=== PATIENT | female | born 1940 | race Caucasian/White ===

== ENCOUNTER 2016-09-01 00:19 | Inpatient (IN) | payer MEDICARE ==
[2016-09-01] VITALS (10 sets, daily range): BP systolic 124–173; BP diastolic 49–72; PULSE 45–55; RESP 14–16; O2SAT 92–98
[~2016-09-01] VITALS: Ht 170.2 cm; Wt 71.7 kg
[~2016-09-01 00:19] MED LIST: ALBU18HF INH; ALEN70TA2 PO; ASPI-973 PO; ATOR10TA66 PO; CITA20TA11 PO; DONE5TAB30 PO; LEVO50TA6 PO; MELO-259 PO; METO25TA6 PO; NITR0.4T SL; OMEP20CA11 PO
[2016-09-01 13:13] LABS: BASOPHILS % (AUTO) 0.6 % (0-3); MONOCYTES % (AUTO) 7.2 % (4-12); Mean Corpuscular Hemoglobin 27.4 pg (27.0-35.0); Mean Corpuscular Volume 85.2 fL (81-100); NEUTROPHILS % (AUTO) 59.9 % (40-74); Platelet Count 204 bil/L (150-400)
[2016-09-01] MEDS ORDERED: Heparin 1,000 Units/500 mL NS Premix IV ONE (15:49)
[2016-09-01] MEDS ORDERED: Heparin 1,000 Unit/mL 10 mL Inj ONE (15:49)
[2016-09-01] MEDS ORDERED: Heparin 10,000 Unit/1,000 mL NS Premix IV ONE (15:50)
[2016-09-01] MEDS ORDERED: fentaNYL-PF 50 mCg/mL 2 mL Inj ONE (16:33)
[2016-09-01] MEDS ORDERED: 0.9% Sodium Chloride 250 ML IV PRN (17:09)
[2016-09-01] MEDS ORDERED: 0.9% Sodium Chloride 1,000 ML IV PRN (17:09)
[2016-09-01] MEDS ORDERED: HYDROcodone-APAP 5-325 mg Tablet PO PRN (17:10)
[2016-09-01] MEDS ORDERED: Atropine 1 mg/10 mL (Code) Syringe IVPUSH PRN (17:10)
[2016-09-01] MEDS ORDERED: Ondansetron 2 mg/mL 2 mL Inj IVPUSH PRN (17:10)
[2016-09-02] VITALS (17 sets, daily range): BP systolic 105–166; BP diastolic 49–76; PULSE 42–73; RESP 11–18; O2SAT 91–98
[2016-09-02] MEDS: Sodium Chloride LOK Flush 10 mL Syringe IVFLUSH SCH ×3 (01:01→16:32)
[2016-09-02] MEDS ORDERED: 0.9% Sodium Chloride 1,000 ML IV ONE (06:00)
[2016-09-02] MEDS ORDERED: diphenhydrAMINE 25 mg Capsule PO ONE (06:00)
[2016-09-02] MEDS ORDERED: 0.9% Sodium Chloride 1,000 ML ONE (07:46)
[2016-09-02] MEDS ORDERED: Heparin 1,000 Units/500 mL NS Premix IV ONE (07:46)
[2016-09-02] MEDS ORDERED: Nitroglycerin 50,000 mcg/250 mL D5W Premix IV ONE (07:46)
[2016-09-02] MEDS ORDERED: Heparin 10,000 Unit/1,000 mL NS Premix IV ONE (07:46)
[2016-09-02] MEDS ORDERED: Heparin 1,000 Unit/mL 10 mL Inj ONE (08:02)
[2016-09-02] MEDS ORDERED: fentaNYL-PF 50 mCg/mL 2 mL Inj ONE (08:03)
--- NOTE | 2016-09-02 08:41 | DI95 ---
[address] [address] INTERVENTIONAL CARDIAC CATHETERIZATION PATIENT: KEVIN NICHOLSON : 1940 MR#: [id number] ADMIT: 09/01/2016 JOB ID: [id number] PROCEDURE: Percutaneous intervention on the proximal circumflex. INDICATION: Recurrent chest discomfort. PROCEDURAL DETAILS: The reader is referred to the procedure log for complete details. Briefly, this was done via left femoral approach using a 6-Luxembourgish Voda guide. Next, a Runthrough wire was used to cross this lesion. It was pre-dilated with a 2.0 balloon and then stented with a 3.0 x 12 mm Xience drug-coated stent delivered at 16 atmospheres with excellent angiographic results. The patient is advised to stay on dual antiplatelet therapy for at least six months post procedure. Further follow up with Dr. Braxton.
[2016-09-02] MEDS ORDERED: CLOP75TA3 PO (09:53)
--- NOTE | 2016-09-02 10:05 | PCM.CVCATH ---
Cardiac Cath Report Date of Service Sep 01, 2016 Primary Indication Exertional and now recently resting angina. Procedure 1. Left heart catheterization 2. Selective coronary angiography 3. Right femoral angiogram Vascular Access Right common femoral artery Procedure Details The patient was brought into the catheterization laboratory. The patient was nothing by mouth since midnight. The patient was prepped and sterilized in the appropriate fashion. Local anesthetic was given to the right groin region with lidocaine 1%. There is apparent and significant scar tissue involving both groins. She has denied any prior history of femoral bypass surgery. She states that scars are from a "tummy tuck ". Ultrasound was used for guidance and a percutaneous stick to the right groin region with an 18-gauge Seldinger needle was attempted. A 6 Moldovan sheath was inserted into the right femoral artery. A 6 Moldovan FL 4 diagnostic catheter was advanced and engaged into the left main. The left coronary angiography was performed in multiple views. The catheter was exchanged over the wire for a 6 Moldovan FR4 diagnostic catheter. The catheter was engaged in the right coronary ostium and the right coronary angiography was performed in multiple views. The catheter was removed over the wire and exchanged for 6 Moldovan angle pigtail catheter. LV hemodynamics were recorded. LV pullback was performed. All catheters were removed. The right femoral angiogram was performed to evaluate for closure device. This take was too high to consider closure device or to proceed with PCI with IV heparin. Hemostasis was obtained with manual compression. The patient was transferred back to special observation unit for post procedural monitoring. There were no immediate complications. Patient is planning to have her PCI the following day. Total fluoroscopy time: 2.1 minutes Total fluoroscopy dosage: 246 mGy Estimated blood loss: 10 mL Findings 1. Hemodynamics: The left ventricular systolic pressure was estimated at 187 mmHg and the left ventricular end-diastolic pressure was estimated at 19 mmHg. There is no significant gradient during pullback. Aortic systemic pressure was 179/66 mmHg. 2. Selective coronary angiography: A. Left main: There artery has no evidence of significant disease. It bifurcates into the left anterior descending and left circumflex arteries. B. Left anterior descending artery: There is at most mild diffuse disease in the proximal portion. It gives a large diagonal artery without any significant disease as well. The mid and distal portion of the LAD is widely patent. C. Left circumflex artery: This is a dominant vessel. There is a 80% proximal stenosis. In the same area there is a severe small marginal artery has a 90% ostial stenosis. Otherwise distally there is no evidence of significant disease. The posterior descending artery has no evidence of significant disease. D. Right coronary artery: This is a nondominant artery without any significant disease. 3. Right femoral angiogram: There is no evidence of significant disease. Unfortunately the femoral stick was high, hence PCI has been deferred for tomorrow morning. Summary 1. Significant stenosis involving the proximal portion of the dominant left circumflex artery. 2. [id number] disease in the proximal portion of the LAD but otherwise no evidence of critical stenosis. 3. RCA is a nondominant vessel. 4. Significant arterial hypertension with mildly increased left ventricular filling pressures. Recommendations Because of the high stick, the patient will be deferred for PCI. She will come back tomorrow morning to the catheterization laboratory and Dr. Tyrell Mariee will perform PCI of the proximal left circumflex artery. Dharmesh Braxton MD Sep 02, 2016 10:05
[2016-09-02] MEDS ORDERED: Polyethylene Glycol (PEG) 17 Gm Powder PO PRN (18:35)
[2016-09-02] MEDS ORDERED: Alum-Mag Hydrox-Simeth 30 mL Suspension PO PRN (18:35)
[2016-09-02] MEDS ORDERED: Ondansetron 2 mg/mL 2 mL Inj IVPUSH PRN (18:35)
--- NOTE | 2016-09-02 19:00 | PCM.HPMED ---
Subjective Date of Service Sep 02, 2016 Primary Provider: Admitting Physician: Primary Care Physician: George Zurita MD Attending Physician: Dharmesh Braxton MD Chief Complaint: Hospitalist consultation for altered mentation status post PCI History of Present Illness: Celia Betancourt is a 76-year-old woman with coronary artery disease who presented yesterday for exertional and resting angina and underwent left heart catheterization and subsequent stenting today. Per report the patient's daughter is quite concerned that she has become more altered and is unable to take care of herself. Patient currently is quite agitated and unable to give history. She states that she is not sure which being In "long term" and would like to go home. She is quite afraid of the hospital because she feels safe at home she does not like being in unfamiliar territory. Patient is aware to some extent that she is afraid but is uncertain of what that is what the cause of her outbursts are. She does state that she feels that she is losing her mind. She states that she does not remember coming into the hospital or why she came to the hospital. Short of feeling anxious and afraid of being here she has no complaints at this time. Per report, patient was started on a beta luis and since that time she became quite achieved and had difficulty ambulating. This beta luis stopped but she still remains quite bradycardic. Review of Systems: A comprehensive review of systems could not be performed as the patient was very fixated on trying to leave and did not want to comply with thorough history. Allergies Coded Allergies: No Known Allergies (Unverified , 09/01/16) Home Medications Unknown. Patient states that she is on many medications but does not know what they are. PMH Coronary artery disease Dementia Surgical History PCI with stenting. Family History Unable to obtain this time, patient is uncertain. Social History Hx Alcohol Use: No Hx Substance Use: No Hx Tobacco Use: Yes (Quit 50 years ago) Exam Vital Signs Vital Sign - Last Date Time Temp Pulse Resp B/P Pulse Ox O2 Delivery O2 Flow Rate FiO2 09/02/16 15:59 36.6 73 18 105/57 95 Room Air 09/02/16 11:27 2.00 Exam General: Patient is agitated and asking to leave., well-developed, well- nourished, HEENT: Normocephalic, atraumatic. External ears without defect. Pupils equal, round, and reactive to light and accommodation. Anicteric sclerae, moist conjunctivae, and no lid lag. Oropharynx free of erythema and cobble stoning with moist mucosa. Neck: Supple with full range of motion. No jugular venous distension. Cardiovascular: Unable to evaluate as patient was not compliant with exam. Pulmonary: Normal respiratory effort with no use of accessory muscles. Unable to auscultate Abdomen: Obese, non-distended. Extremities: No clubbing, cyanosis, edema. Skin: Normal temperature, turgor, and texture. Neurological: Cranial nerves grossly intact. Normal muscle strength, tone, and bulk. Reflexes, coordination, and sensory function within normal limits. No known gait impairment. Psychiatric: Agitated. Anxious. Oriented to self only. Lab and Diagnostics Result Diagram: 09/01/16 1300 09/01/16 1300 Assessment & Plan Celia Betancourt is a 76-year-old woman with coronary artery disease who presented yesterday for exertional and resting angina and underwent left heart catheterization and subsequent stenting today. Per report the patient's daughter is quite concerned that she has become more altered and is unable to take care of herself. Bradycardia secondary to beta luis toxicity, present on admission, active -Continue telemetry monitoring -Stop beta luis Hospital acquired delirium on baseline demential, present on admission, active -Likely due to new environment -Patient will require a sitter -Seroquel 25 mg now Coronary artery disease status post Xience drug-coated stent, present on admission, active -Continue dual antiplatelet therapy. Patient is admitted under observation status with expected length of stay less than 2 midnights due to severity of presenting symptoms, risk of adverse event, and complexity of treatment plan. Attending Statement The patient was seen and examined together with Dr. Rios on 09/02/2016 and I agree with the history, exam and plan as outlined in the note above. . copies to: George Zurita MD, Viktoriya DO Sep 02, 2016 18:33 Wild Duckworth MD Sep 04, 2016 07:31
[2016-09-02] MEDS ORDERED: Albuterol 2.5 mg/3 mL Inhalation Solution NEB PRN (21:07)
[2016-09-03] MEDS: Heparin 5,000 Unit/mL Inj SUBQ SCH ×3 (00:30→16:30)
[2016-09-03] MEDS: Sodium Chloride LOK Flush 10 mL Syringe IVFLUSH SCH ×3 (01:25→16:30)
[2016-09-03 02:27] VITALS: BP 173/73; PULSE 56; RESP 16; O2SAT 94
[2016-09-03 06:47] VITALS: BP 150/63; PULSE 58; RESP 16; O2SAT 95
[2016-09-03 10:59] VITALS: PULSE 49
[2016-09-03 13:04] VITALS: BP 148/66; PULSE 54; RESP 20; O2SAT 94
--- NOTE | 2016-09-03 15:21 | PCM.CHPCAR ---
Consult Subjective Date of service Sep 03, 2016 Date of admit Sep 01, 2016 at 19:56 Provider Requesting Consult Primary Care Physician Primary Care Physician: George Zurita MD Chief Complaint Dyspnea on exertion, abnormal stress test, confusion History of Present Illness 76-year-old woman history of hyperlipidemia and memory impairment admitted to [facility] as bedded outpatient for coronary angiography to explore exertional angina, exertional dyspnea, and abnormal stress test. She had coronary angiography done on 09/01/2016 and tolerated the procedure well. Given angiography showed significant stenosis of the proximal dominant left circumflex artery, she underwent drug-eluting stent placement with Dr. Mariee the next day. She tolerated the procedure well as well. However, she became more and more confused post procedure and became agitated. She was also noted to have significant sinus bradycardia with heart rate in the 30s. Per daughter , patient has chronic memory impairment and perhaps mild undiagnosed dementia but metoprolol made the patient's memory impairment worse. Metoprolol was stopped and patient's heart rate improved from 30s to 50s over the last 24 hours. Patient was confused and confrontational today morning as well but is back to her baseline after having her lunch today. Denies chest pain, dyspnea, lightheadedness, or syncope. She is able to walk around the hallway without any symptoms, which was not the case prior to stent placement. Review of Systems Review of Systems Per history of present illness and otherwise unremarkable PMH Past Medical History # HFrEF from nonischemic cardiomyopathy with AICD placement in 2003 and gen change 2009 # Pericardial cyst # Lupus anticoagulant # Pancreatic mass # Hyperlipidemia # Sleep apnea # Former cigarette smoker Bedside Blood Glucose: 84 Scheduled Alendronate Sodium (Fosamax) 70 Mg Tablet 70 MG PO WEEKLY (Reported) Aspirin (Aspirin) 81 Mg Tablet 81 MG PO DAILY (Reported) Atorvastatin Calcium (Atorvastatin Calcium) 10 Mg Tablet 10 MG PO DAILY ( Reported) Citalopram (Citalopram) 20 Mg Tablet 20 MG PO DAILY (Reported) Clopidogrel Bisulfate (Plavix) 75 Mg Tablet 75 MG PO DAILY (Reported) Donepezil (Donepezil) 5 Mg Tablet 5 MG PO HS (Reported) Levothyroxine (Levothyroxine) 50 Mcg Tablet 50 MCG PO DAILY (Reported) Meloxicam (Meloxicam) 7.5 Mg Tablet 7.5 MG PO DAILY (Reported) Metoprolol Tartrate (Metoprolol Tartrate) 25 Mg Tablet 12.5 MG PO BID (Reported ) Omeprazole (Omeprazole) 20 Mg Capsule.dr 20 MG PO DAILY (Reported) Scheduled PRN Albuterol Sulfate (Ventolin HFA Inhaler) 200 Puff/18 Gm Inhaler 1 PUFF INH Q4 PRN PRN For Wheezing (Reported) Nitroglycerin SL (Nitrostat) 0.4 Mg Tab.subl 0.4 MG SL Q5MIN PRN PRN For Chest Pain (Reported) Current Inpatient Medications Current Medications Sodium Chloride 1,000 ml @ 100 mls/hr Q10H PRN IV; Start 09/01/16 at 17:09 Sodium Chloride 250 ml @ 25 mls/min Q10M PRN IV; Start 09/01/16 at 17:09 Lidocaine HCl 10 ml ONCE PRN INJ; Start 09/01/16 at 17:10 Acetaminophen 975 mg Q6H PRN PO; Start 09/01/16 at 17:10 Acetaminophen/ Hydrocodone Bitart One tablet for Mild ... Q4H PRN PO Last administered on 09/01/16 22:48; Admin Dose 1 TABLET; Start 09/01/16 at 17:10 Ondansetron HCl Start with 4 MG, if ... Q4H PRN IVPUSH; Start 09/01/16 at 17:10 Morphine Sulfate Start at 1 mg, if not effect... Q5MIN PRN IVPUSH; Start at 17:10 Nitroglycerin 0.4 mg Q5MIN PRN SL; Start 09/01/16 at 17:10 Atropine Sulfate 1 mg ONCE PRN IVPUSH; Start 09/01/16 at 17:10 Nitroglycerin 0.4 mg PRN PRN SL; Start 09/02/16 at 06:00; Stop 09/02/16 at 06: 00; Status DC Sodium Chloride 10 ml VINNIE IVFLUSH Last administered on 09/03/16 13:10; Admin Dose 10 ML; Start 09/02/16 at 00:30 Albuterol 2.5 mg Q4H PRN NEB; Start 09/02/16 at 21:07 Atorvastatin Calcium 20 mg DAILY PO Last administered on 09/03/16 13:09; Admin Dose 20 MG; Start 09/01/16 at 17:20 Citalopram Hydrobromide 20 mg DAILY PO Last administered on 09/03/16 13:14; Admin Dose 20 MG; Start 09/02/16 at 08:30 Donepezil HCl 5 mg HS PO Last administered on 09/01/16 22:51; Admin Dose 5 MG; Start 09/01/16 at 21:00 Levothyroxine Sodium 50 mcg DAILYAC PO Last administered on 09/03/16 13:09; Admin Dose 50 MCG; Start 09/02/16 at 07:30 Metoprolol Tartrate 12.5 mg BID PO Last administered on 09/02/16 07:46; Admin Dose 12.5 MG; Start 09/01/16 at 20:30; Stop 09/02/16 at 15:43; Status DC Famotidine 20 mg BID PO Last administered on 09/03/16 13:09; Admin Dose 20 MG; Start 09/01/16 at 20:30 Clopidogrel Bisulfate 75 mg DAILY PO Last administered on 09/03/16 13:10; Admin Dose 75 MG; Start 09/03/16 at 08:30 Aspirin 81 mg DAILY PO Last administered on 09/03/16 13:09; Admin Dose 81 MG; Start 09/03/16 at 08:30 Quetiapine Fumarate 25 mg HS PO; Start 09/02/16 at 21:00; Stop 09/02/16 at 21:00 ; Status DC Heparin Sodium (Porcine) 5,000 unit Q8 SUBQ Last administered on 09/03/16 13:10 ; Admin Dose 5,000 UNIT; Start 09/03/16 at 00:30 Al Hydrox/Mg Hydrox/Simethicone 30 ml Q6H PRN PO; Start 09/02/16 at 18:35 Ondansetron HCl 4 to 8 mg Q4H PRN IVPUSH; Start 09/02/16 at 18:35 Senna 17.2 mg BID PRN PO; Start 09/02/16 at 18:35 Polyethylene Glycol 17 gm DAILY PRN PO; Start 09/02/16 at 18:35 Allergies: Coded Allergies: No Known Allergies (Unverified , 09/01/16) Family History Family History Daughter has diabetes Social History Hx Alcohol Use: NoHx Substance Use: NoHx Tobacco Use: Yes (Quit 50 years ago) Exam Vital Signs Vital Sign - Last Date Time Temp Pulse Resp B/P Pulse Ox O2 Delivery O2 Flow Rate FiO2 09/03/16 13:04 37.2 54 20 148/66 94 Room Air 09/02/16 11:27 2.00 Intake and Output 09/02/16 09/02/16 09/03/16 Cumulative From/Thru 15:00 23:00 07:00 09/01/16 13:15 - 09/03/16 06:47 Intake Total 300 ml 420 ml 100 ml 820 ml Output Total 650 ml 250 ml 900 ml Balance -350 ml 420 ml -150 ml -80 ml Intake Oral 300 ml 420 ml 100 ml 820 ml Output Urine Total 650 ml 250 ml 900 ml # Voids 1 1 2 # Bowel Movements 0 0 Objective General appearance: No apparent distress, well-nourished, pleasant, cooperative HEET: Normocephalic atraumatic, no scleral icterus, tongue midline, mucous membranes moist Neck: supple Cardiovascular: regular but robert, normal S1 and normal S2, no murmurs/rubs/ gallops, PMI nondisplaced, no JVD, no peripheral edema Respiratory: Good aeration, CTAB Abdomen: Soft, nontender, nondistended, + bowel sounds Groin: both groins clean with minimal ecchymosis and without pain Neuro: Alert, no facial droop, tongue midline, no gross motor deficits Psych: appropriate affect Skin: no rashes on face, neck, and lower extremities Lab and Diagnostics Result Diagram: 09/01/16 1300 09/03/16 0852 X-Rays, CTs and MRIs Cath 09/01/2016: Obstructive proximal disease in the dominant left circumflex artery, non-obstructive LAD disease. Assessment & Plan Assessment 76-year-old woman history of hyperlipidemia and memory impairment admitted to [facility] as bedded outpatient for coronary angiography to explore exertional angina, exertional dyspnea, and abnormal stress test: # CAD s/p BALBIR to proximal LCx 09/02/2016. Patient has done well since her stent placement and denies any angina or anginal equivalent symptoms. Her angiography access sites look good. I spent significant time educating the patient about her condition and answered her questions. Recommendations as below: - Continue aspirin 81 mg daily - Continue clopidogrel 75 mg daily for 6 months minimum - Continue atorvastatin 20 mg daily - Agree with stopping metoprolol and staying away from beta blockers and other AV suhail blocking agents given significant bradycardia with even low doses of metoprolol - His blood pressure greater than 140/90 consistently, consider starting the patient on lisinopril 10 mg daily and uptitrate to get blood pressure to goal. # Altered mental status in the setting of underlying dementia: Patient has had altered mental status due to being in the hospital and environmental changes. She feels better today and daughter agrees that patient is baseline. We will defer management to primary team. Cardiology will sign off at this time. Aaron Lau MD Sep 03, 2016 15:21
[2016-09-03] MEDS ORDERED: CLOP75TA3 PO (15:45)
[2016-09-03 15:49] VITALS: BP 149/63; PULSE 52; RESP 20; O2SAT 95
--- NOTE | 2016-09-03 15:52 | PCM.DIMED ---
José Miguel Doss DO 09/03/16 1552: Discharge Instructions Date of Service Sep 03, 2016 Dates of Hospitalization Sep 01, 2016 at 19:56 Discharge Diagnosis Discharge Diagnosis Bradycardia secondary to beta luis toxicity Hospital acquired delirium on baseline dementia Coronary artery disease status post Xience drug-coated stent Medication Instructions Additional med instructions Stop taking your Metoprolol. Diet Discharge Diet: Heart Healthy Activity Discharge Activity: Home Health Phyical Therapy Call your provider Call your provider for: Shortness of breath, Bleeding, Chest pain Patient Instructions Patient Instructions You need to take your Plavix and Aspirin daily - do not miss a dose to ensure your stent stays open. Stop taking your beta-luis (Metoprolol). You can go over more medication options at your follow up with Dr. Zurita to ensure you are on the right medication. At your appointment with Dr. Zurita, let him know I recommended home health PT for 3x weekly for 3-4 weeks. Follow-up Provider: George Zurita MD Follow-up with PCP in: 1 week (HR eval post hospitalization f/u) Wild Duckworth MD 09/04/16 0732: Discharge Instructions Attending's Statement The patient was seen and examined together with Dr. Doss on 09/03/2016 and I agree with the history, exam and plan as outlined in the note above. . José Miguel Doss DO Sep 03, 2016 15:52 Wild Duckworth MD Sep 04, 2016 07:32
--- NOTE | 2016-09-03 16:01 | PCM.DC.MED ---
Discharge Summary Date of Service Sep 03, 2016 Dates of Hospitalization Date of Hospital Admission Sep 01, 2016 at 19:56 Date of Discharge: Sep 03, 2016 Providers: Admitting Physician: Dharmesh Braxton MD Primary Care Physician: George Zurita MD Attending Physician: Dharmesh Braxton MD Diagnosis at Time of Discharge Diagnosis at Time of Discharge Bradycardia secondary to beta luis toxicity Hospital acquired delirium on baseline dementia Coronary artery disease status post Xience drug-coated stent Consultations Dr. Lau, Cardiology Procedures Invasive Procedures Cardiac Catheterization with PCI 09/02 Summary 1. Significant stenosis involving the proximal portion of the dominant left circumflex artery. 2. Camx-dj-rovddiet disease in the proximal portion of the LAD but otherwise no evidence of critical stenosis. 3. RCA is a nondominant vessel. 4. Significant arterial hypertension with mildly increased left ventricular filling pressures. Recommendations Because of the high stick, the patient will be deferred for PCI. She will come back tomorrow morning to the catheterization laboratory and Dr. Tyrell Mariee will perform PCI of the proximal left circumflex artery. The patient is advised to stay on dual antiplatelet therapy for at least six months post procedure. Further follow up with Dr. Braxton. Brief History Mrs. Jamison is a 76-year-old woman with a history of hyperlipidemia and memory impairment admitted to [facility] for coronary angiography to explore exertional angina, exertional dyspnea, and abnormal stress test. She had a coronary angiography done on 09/01/2016 which showed significant stenosis of the proximal dominant left circumflex artery as above. She underwent drug-eluting stent placement with Dr. Mariee the next day. She was also noted to have significant sinus bradycardia with heart rate in the 30s. Her metoprolol was stopped and her HR increased from the 30's and into the 50's. After working with PT today, her HR responded appropriately. She was able to walk the hallway and do steps without any symptoms which is vastly improved since before the procedure. Of note, after the cath procedure she became increasingly confused and agitated. Her daughter reported ongoing memory issues but that this was not her baseline. She awoke midday on 09/03 at her baseline without clear memory of what transpired the night prior. Hospital Course Celia Betancourt is a 76-year-old woman with coronary artery disease who presented yesterday for exertional and resting angina and underwent left heart catheterization and subsequent stenting on 09/02. She had an episode of delirium post procedure but awoke around lunch on 09/03 at her normal baseline per her daughter. Bradycardia secondary to beta luis toxicity, present on admission, Improving. - Stop taking Metoprolol - HR responded adequately to PT session, no dizziness/lightheadedness - Follow up with Dr. Zurita to evaluate other medication options Coronary artery disease status post Xience drug-coated stent, present on admission, active -Continue dual antiplatelet therapy (Plavix 75mg daily, Aspirin 81mg daily) - Continue home Atorvastatin - Follow up with Dr. Braxton at your scheduled appointment Hospital acquired delirium on baseline dementia, present on admission. Improving. - Likely due to new environment, post-procedural recovery - Patient awoke at lunchtime at her usual baseline per her daughter Disposition: Patient was discharged in stable and improved condition. After evaluating her working with PT, I recommend talking with Dr. Zurita about sessions with home health 3x weekly for 3-4 weeks to ensure patient safety and recovery. Exam Vital Signs (Last) Date Time Temp Pulse Resp B/P Pulse Ox O2 Delivery O2 Flow Rate FiO2 09/03/16 15:49 36.6 52 20 149/63 95 Room Air 09/02/16 11:27 2.00 Exam General: Elderly woman sitting upright in bed in NAD, interacting appropriately HEENT: NCAT, EOMI, PERRLA. External ears without defect. Oropharynx free of erythema and cobble stoning with moist mucosa. Neck: Supple with full range of motion. No jugular venous distension or thyromegaly. Cardiovascular: Slightly bradycardic but regular rhythm. No murmur/rubs/gallops Pulmonary: CTA bilaterally, no wheezing/rales/rhonchi. Normal effort without accessory muscle use. Abdomen: Obese, non-distended, nontender. Normal bowel sounds. No rebound or guarding. Extremities: No clubbing, cyanosis, edema. Skin: Normal temperature, turgor, and texture. Neurological: Cranial nerves grossly intact. Normal muscle strength, tone, and bulk. Reflexes, coordination, and sensory function within normal limits. No gait impairment. Psychiatric: Normal mood and affect. Test 09/01/16 13:00 09/03/16 08:52 White Blood Count 5.0th/mm3 (3.8-10.1) Red Blood Count 4.60mil/mm3 (3.90-5.20) Hemoglobin 12.6g/dL (12.0-15.6) Hematocrit 39.2% (35.0-46.0) Mean Corpuscular Volume 85.2fL (81-100) Mean Corpuscular Hemoglobin 27.4pg (27.0-35.0) Mean Corpuscular Hemoglobin Concent 32.1% (32.0-37.0) Red Cell Distribution Width 13.8% (12.3-15.4) Platelet Count 204bil/L (150-400) Neutrophils (%) (Auto) 59.9% (40-74) Lymphocytes (%) (Auto) 29.3% (14-46) Monocytes (%) (Auto) 7.2% (4-12) Eosinophils (%) (Auto) 3.0% (0-5) Basophils (%) (Auto) 0.6% (0-3) Sodium Level 140mEq/L (134-144) Potassium Level 4.6mEq/L (3.5-5.2) Chloride Level 104mEq/L (97-108) Carbon Dioxide Level 23mmol/L (18-29) Blood Urea Nitrogen 21mg/dL (8-27) Creatinine 1.10mg/dL (0.57-1.00) Estimat Glomerular Filtration Rate 69mL/min (>59) Glucose Level 104mg/dL (60-99) Calcium Level 9.0mg/dL (8.5-10.1) Discharge Medications Discharge Medications Alendronate Sodium (Fosamax) 70 Mg Tablet 70 MG PO WEEKLY (Reported) Aspirin (Aspirin) 81 Mg Tablet 81 MG PO DAILY (Reported) Atorvastatin Calcium (Atorvastatin Calcium) 10 Mg Tablet 10 MG PO DAILY ( Reported) Citalopram (Citalopram) 20 Mg Tablet 20 MG PO DAILY (Reported) Clopidogrel Bisulfate (Plavix) 75 Mg Tablet 75 MG PO DAILY Prescribed by: CASA DOSS DO Donepezil (Donepezil) 5 Mg Tablet 5 MG PO HS (Reported) Levothyroxine (Levothyroxine) 50 Mcg Tablet 50 MCG PO DAILY (Reported) Omeprazole (Omeprazole) 20 Mg Capsule.dr 20 MG PO DAILY (Reported) As needed Albuterol Sulfate (Ventolin HFA Inhaler) 200 Puff/18 Gm Inhaler 1 PUFF INH Q4 PRN PRN For Wheezing (Reported) Nitroglycerin SL (Nitrostat) 0.4 Mg Tab.subl 0.4 MG SL Q5MIN PRN PRN For Chest Pain (Reported) Additional med instructions Stop taking your Metoprolol. Followup Plan Discharge Diet: Heart Healthy Discharge Activity: Home Health Phyical Therapy Patient Instructions You need to take your Plavix and Aspirin daily - do not miss a dose to ensure your stent stays open. Stop taking your beta-luis (Metoprolol). You can go over more medication options at your follow up with Dr. Zurita to ensure you are on the right medication. After talking with our Physical Therapy team, I recommend you go home with some home health (PT) 3x weekly for 3-4 weeks to ensure your safety at home and ongoing strength recovery. Follow-up Provider: George Zurita MD Follow-up with PCP in: 1 week (HR eval post hospitalization f/u) Provider: Dharmesh Braxton MD Follow-up in: 2 weeks (1-2 weeks) Time spent Greater than 30 minutes was spent in preparation of discharge with greater than 50% of that time dedicated to patient counseling and coordination of care. . Attending Statement The patient was seen and examined together with Dr. Doss on 09/03/2016 and I agree with the history, exam and plan as outlined in the note above. . copies to: George Zurita MD, Jeffery S DO Sep 03, 2016 16:01 Wild Duckworth MD Sep 04, 2016 07:35
== END 2016-09-03 17:02 | disposition home health service (06) | DRG 246 ==
LOC: SOUO 00:19 → PCC 19:56 → UNDOADMIN 19:56 → SOUO 19:56
PROVIDERS: ADMIT Internal Medicine Cardiovascular Disease; ATTEND Internal Medicine Cardiovascular Disease
PROC: 027034Z Dilation of Coronary Artery, One Artery with Drug-eluting Intraluminal Device, Percutaneous Approach (ICD-10-PCS; principal; 2016-09-01)
PROC: 4A023N7 Measurement of Cardiac Sampling and Pressure, Left Heart, Percutaneous Approach (ICD-10-PCS; 2016-09-01)
PROC: B2111ZZ Fluoroscopy of Multiple Coronary Arteries using Low Osmolar Contrast (ICD-10-PCS; 2016-09-01)
PROC: B2151ZZ Fluoroscopy of Left Heart using Low Osmolar Contrast (ICD-10-PCS; 2016-09-01)
DX: I25.119 Atherosclerotic heart disease of native coronary artery with unspecified angina pectoris (principal); G92 Toxic encephalopathy; F05 Delirium due to known physiological condition; R00.1 Bradycardia, unspecified; T50.995A Adverse effect of other drugs, medicaments and biological substances, initial encounter; F03.90 Unspecified dementia, unspecified severity, without behavioral disturbance, psychotic disturbance, mood disturbance, and anxiety; I42.8 Other cardiomyopathies; Z95.810 Presence of automatic (implantable) cardiac defibrillator; G47.30 Sleep apnea, unspecified; Z79.82 Long term (current) use of aspirin